=== PATIENT | male | born 1965 | race Caucasian/White ===

== ENCOUNTER 2020-04-24 11:55 | Emergency (ER) | payer OTHER ==
[~2020-04-24] VITALS: Ht 182.9 cm; Wt 87.5 kg
[2020-04-24 12:01] VITALS: Ht 182.9 cm; Wt 87.5 kg
[2020-04-24 12:37] LABS: BASOPHIL % 0.6 % (0-2); PLATELET COUNT 227 x10^3mcL (130-400); RED CELL DISTRIBUTION WIDTH 13.8 % (11.5-14.5)
[2020-04-24 12:44] LABS: CALCIUM 8.8 mg/dL (8.5-10.1); CHLORIDE SERUM 101 mmol/L (98-107); CREATININE SERUM 0.9 mg/dL (0.7-1.3); GFR1 > 60 mL/min; GLUCOSE SERUM 105 mg/dL (74-106); POTASSIUM SERUM 3.8 mmol/L (3.5-5.1); SODIUM SERUM 139 mmol/L (136-145)
[2020-04-24 12:48] LABS: ALBUMIN 4.2 g/dL (3.4-5.0); ALKALINE PHOSPHATASE 60 U/L (46-116); ALT/SGPT 34 U/L (16-63); AST/SGOT 19 U/L (15-37); BILIRUBIN TOTAL 0.39 mg/dL (0.20-1.00); LIPASE 40 IU/L (73-393); TOTAL PROTEIN, SERUM 6.9 g/dL (6.4-8.2)
[2020-04-24 14:00] VITALS: BP 138/76
== END 2020-04-24 14:00 | disposition home or self-care (01) ==
LOC: ED 11:55
PROVIDERS: Emergency Medicine
DX: G40.909 Epilepsy, unspecified, not intractable, without status epilepticus (principal); R07.89 Other chest pain; F41.9 Anxiety disorder, unspecified; F10.10 Alcohol abuse, uncomplicated
CPT/HCPCS: 99406; J1885; J2060; J2405; J7030; Q0092

== ENCOUNTER 2020-11-24 16:02 | Emergency (ER) | payer MEDICAID ==
[~2020-11-24] VITALS: Ht 188 cm; Wt 88.5 kg
[2020-11-24 16:04] VITALS: BP 134/91; Ht 188 cm; Wt 88.5 kg
[2020-11-24 17:07] LABS: BASOPHIL % 0.9 % (0.2-1.5); PLATELET COUNT 297 x10^3mcL (152-348)
[2020-11-24 17:15] LABS: CALCIUM 9.2 mg/dL (8.5-10.1); CHLORIDE SERUM 104 mmol/L (98-107); CREATININE SERUM 1.1 mg/dL (0.7-1.3); GFR1 > 60 mL/min; GLUCOSE SERUM 83 mg/dL (74-106); POTASSIUM SERUM 4.2 mmol/L (3.5-5.1); SODIUM SERUM 143 mmol/L (136-145)
[2020-11-24 17:19] LABS: ALBUMIN 4.7 g/dL (3.4-5.0); ALKALINE PHOSPHATASE 64 U/L (46-116); ALT/SGPT 47 U/L (16-63); AST/SGOT 32 U/L (15-37); BILIRUBIN TOTAL 0.36 mg/dL (0.20-1.00); TOTAL PROTEIN, SERUM 7.7 g/dL (6.4-8.2)
== END 2020-11-24 17:32 | disposition left against medical advice (07) ==
LOC: ED 16:02
PROVIDERS: Emergency Medicine
DX: F32.9 Major depressive disorder, single episode, unspecified (principal); F10.129 Alcohol abuse with intoxication, unspecified; F41.9 Anxiety disorder, unspecified; F11.10 Opioid abuse, uncomplicated; Y90.7 Blood alcohol level of 200-239 mg/100 ml
CPT/HCPCS: G0480

== ENCOUNTER 2020-11-24 17:47 | Emergency (ER) | payer MEDICAID ==
[~2020-11-24] VITALS: Ht 185.4 cm; Wt 90.7 kg
[2020-11-24 17:59] VITALS: Ht 185.4 cm; Wt 90.7 kg
[2020-11-25 08:00] LABS: UA SPECIFIC GRAVITY >=1.030 (1.005-1.035); microscopic required? YES; urine erythrocyte 1+ (NEGATIVE)
[2020-11-25 09:11] LABS: AMPHETAMINE QUAL UR NONE DETECTED (See below)
[2020-11-25 15:25] VITALS: BP 135/67
== END 2020-11-25 15:25 ==
LOC: ED 17:47
PROVIDERS: Emergency Medicine
DX: R45.851 Suicidal ideations (principal); Z20.822 Contact with and (suspected) exposure to COVID-19; F10.129 Alcohol abuse with intoxication, unspecified; F32.9 Major depressive disorder, single episode, unspecified; F41.9 Anxiety disorder, unspecified; F11.10 Opioid abuse, uncomplicated; Z98.890 Other specified postprocedural states
CPT/HCPCS: G0480; J1200; J1630; J2060; J3486; J3490; J7030; U0003

== ENCOUNTER 2020-11-24 17:47 | Emergency (ER) | payer OTHER | END 2020-11-25 15:25 | LOC: ED 17:47 | DX: Z02.89 Encounter for other administrative examinations (principal) ==